=== PATIENT | female | born 1985 | race American Indian/Alaskan Native ===

== ENCOUNTER 2017-02-24 12:34 | Emergency (ER) | payer MEDICAID ==
--- NOTE | 2017-02-24 12:55 | Emergency Department Report ---
Chief Complaint: Abdominal Pain Stated Complaint: HERNIA FEMORAL/PAIN Time Seen by Provider: 02/24/17 12:47 - HPI History of Present Illness: PT c/o R sided groin pain, intermittently x 1 year. PT states 4 days ago, she was lifting a toilet and her pain increased. PT states she was seen by internal affairs commander and told she might have a cyst. No imaging done. PT states she was also seen in ED but no imaging done. PT states she was given RX for keflex and Tylenol # 3 without relief - ROS Review of Systems: + abd pain pain radiates down to R leg - missed menstrual cycle - Exam Vital Signs: Vital Signs 02/24/17 12:47 Temperature 98.5 F Pulse Rate 84 Respiratory 16 Rate Blood Pressure 120/74 O2 Sat by Pulse 100 Oximetry Physical Exam: thin female steady gait no acute distress MSE screening note: Focused history and physical exam performed. Due to findings the following was ordered: labs, us ED Disposition for MSE Condition: Stable Instructions: Abdominal Pain (ED)
[2017-02-24 13:12] LABS: Basophils % (Auto) 0.5 % (0.0-1.8); Hematocrit 40.4 % (30.3-42.9); Hemoglobin 13.9 gm/dl (10.1-14.3); Mean Corpuscular HGB Conc 35 % (30-34); Mean Corpuscular Hemoglobin 30 pg (28-32); Mean Corpuscular Volume 87 fl (79-97); Platelet Count 138 K/mm3 (140-440); Red Blood Count 4.64 M/mm3 (3.65-5.03); Red Cell Distribution Width 13.2 % (13.2-15.2); White Blood Count 5.6 K/mm3 (4.5-11.0)
[2017-02-24 13:33] LABS: Alanine Aminotransferase 9 units/L (7-56); Albumin 4.4 g/dL (3.9-5); Albumin/Globulin Ratio 1.4 %; Alkaline Phosphatase 41 units/L (35-129); Anion Gap 15 mmol/L; BUN/Creatinine Ratio 14.28; Blood Urea Nitrogen 10 mg/dL (7-17); Carbon Dioxide 26 mmol/L (22-30); Chloride 100.3 mmol/L (98-107); Glucose 93 mg/dL (65-100); Potassium 3.5 mmol/L (3.6-5.0); Sodium 138 mmol/L (137-145); Total Protein 7.6 g/dL (6.3-8.2)
[2017-02-24 14:54] LABS: Bilirubin,Urine NEG (Negative); Blood,Urine SM (Negative); Ketones,Urine NEG (Negative); Leukocyte Esterase,Urine NEG (Negative); Mucus,Urine FEW /HPF; Nitrite,Urine NEG (Negative); Protein,Urine <15 mg/dL mg/dL (Negative); Urobilinogen,Urine < 2.0 mg/dL (<2.0); WBC,Urine < 1.0 /HPF (0.0-6.0)
--- NOTE | 2017-02-24 15:25 | Ultrasound Report ---
Transabdominal and transvaginal pelvic ultrasound including Doppler interrogation. History: Pelvic pain. Findings: Uterus is normal in size and configuration measuring 9.3 x 4.2 x 5.9 cm. Endometrial thickness measures 9 mm. There no focal uterine abnormalities. The left ovary is normal. There is a 1.3 cm in diameter slightly hyperechoic region in the right ovary. Minimal free fluid is seen within the cul-de-sac. Doppler interrogation demonstrates normal flow to the ovaries. Impression: 1.3 cm solid lesion in the right ovary. Minimal free fluid is present within the cul-de-sac.
[2017-02-24] MEDS ORDERED: NACL 0.9% 1000 ML 1,000 ML IV ONE (15:36)
--- NOTE | 2017-02-24 15:38 | Emergency Department Report ---
<CRUZ RIOS - Last Filed: 02/24/17 20:33> ED Abdominal Pain HPI - General Chief Complaint: Abdominal Pain Stated Complaint: HERNIA FEMORAL/PAIN Time Seen by Provider: 02/24/17 12:47 Source: patient Mode of arrival: Ambulatory Limitations: No Limitations - History of Present Illness Initial Comments: 31-year-old female past medical history none presents with complaint of 4 days of right sided groin/inguinal pain. Patient states that she feels it outside of her genital region in perineal/right inguinal crease region. States it is an intermittent pressure and pain sensation. States that 4 days ago she lifted a heavy object when she was moving furniture around at home and subsequently he has experienced pain and soreness in her groin region. Patient denies any vaginal discharge denies any vaginal bleeding, states she does not think she is . States that approximately a year ago she had a similar episode after picking up something heavy. States she has been feeling somewhat nauseous. States she went to her [facility] who gave her prescription for Tylenol with codeine and Keflex and discharged her. Patient denies any overt vomiting, states she is still moving her bowels. Patient states she is still able to pass gas. MD Complaint: abdominal pain Onset/Timin -: days(s) Radiation: none Migration to: no migration Severity: moderate Severity scale (0 -10): 6 Consistency: intermittent Improves With: nothing Associated Symptoms: denies other symptoms - Related Data LMP Date: 02/18/17 Previous Rx's Medication Instructions Recorded Last Taken Type traMADol [Ultram] 50 mg PO Q6HR PRN #12 tablet 12/23/14 Unknown Rx Ibuprofen [Motrin] 600 mg PO Q8H PRN #30 tablet 02/24/17 Unknown Rx Allergies Allergy/AdvReac Type Severity Reaction Status Date / Time No Known Allergies Allergy Verified 12/23/14 08:51 ED Review of Systems ROS: Stated complaint: HERNIA FEMORAL/PAIN Other details as noted in HPI Constitutional: denies: chills, fever Eyes: denies: eye pain, eye discharge, vision change ENT: denies: ear pain, throat pain Respiratory: denies: cough, shortness of breath, wheezing Cardiovascular: denies: chest pain, palpitations Endocrine: no symptoms reported Gastrointestinal: denies: abdominal pain, nausea, diarrhea Genitourinary: denies: urgency, dysuria, discharge Musculoskeletal: denies: back pain, joint swelling, arthralgia Skin: denies: rash, lesions Neurological: denies: headache, weakness, paresthesias Psychiatric: denies: anxiety, depression Hematological/Lymphatic: denies: easy bleeding, easy bruising ED Past Medical Hx - Past Medical History Previous Medical History?: No - Surgical History Past Surgical History?: No - Social History Smoking Status: Never Smoker Substance Use Type: None - Medications Home Medications: Home Medications Medication Instructions Recorded Confirmed Last Taken Type traMADol [Ultram] 50 mg PO Q6HR PRN #12 tablet 12/23/14 Unknown Rx Ibuprofen [Motrin] 600 mg PO Q8H PRN #30 tablet 02/24/17 Unknown Rx ED Physical Exam - General Limitations: No Limitations General appearance: alert, in no apparent distress - Head Head exam: Present: atraumatic, normocephalic - Eye Eye exam: Present: normal appearance, PERRL, EOMI - ENT ENT exam: Present: mucous membranes moist - Neck Neck exam: Present: normal inspection, full ROM - Respiratory Respiratory exam: Present: normal lung sounds bilaterally. Absent: respiratory distress - Cardiovascular Cardiovascular Exam: Present: regular rate, normal rhythm. Absent: systolic murmur, diastolic murmur, rubs, gallop - GI/Abdominal GI/Abdominal exam: Present: soft, normal bowel sounds - Rectal Rectal exam: Present: normal inspection - External exam: Present: normal external exam Speculum exam: Present: normal speculum exam Bi-manual exam: Present: normal bi-manual exam - Extremities Exam Extremities exam: Present: normal inspection, full ROM - Back Exam Back exam: Present: normal inspection - Neurological Exam Neurological exam: Present: alert, oriented X3, CN II-XII intact, normal gait - Psychiatric Psychiatric exam: Present: normal affect, normal mood - Skin Skin exam: Present: warm, dry, intact, normal color. Absent: rash ED Course Vital Signs 02/24/17 02/24/17 12:47 18:55 Temperature 98.5 F Pulse Rate 84 71 Respiratory 16 18 Rate Blood Pressure 120/74 Blood Pressure 113/74 [Left] O2 Sat by Pulse 100 99 Oximetry ED Medical Decision Making - Lab Data Result diagrams: 02/24/17 12:58 02/24/17 12:58 - Medical Decision Making A/P: Groin pain, ovarian cysts, musculoskeletal. 1-CT scan shows ovarian cyst no other abnormalities no small bowel obstruction no incarcerated femoral hernia, pelvic ultrasound is consistent with finding of ovarian cyst 2-follow-up with [employer] [facility] and primary care 3-motrin return when necessary for discomfort 4-on clinical exam there is no evidence of an incarcerated for more inguinal hernia 5-wet prep sent, pending result Critical care attestation.: If time is entered above; I have spent that time in minutes in the direct care of this critically ill patient, excluding procedure time. ED Disposition Clinical Impression: Abdominal pain Qualifiers: Abdominal location: unspecified location Qualified Code(s): R10.9 - Unspecified abdominal pain Disposition: TO HOME OR SELFCARE Is pt being admited?: No Does the pt Need Aspirin: No Condition: Stable Instructions: Abdominal Pain (ED) Prescriptions: Ibuprofen [Motrin] 600 mg PO Q8H PRN #30 tablet PRN Reason: Pain Referrals: [facility] [Outside] - 3-5 Days BRIANNE AGUILAR MD [Referring] - 3-5 Days SHILO AGUILAR MD [Staff Physician] - 3-5 Days ARIAN AQUINO MD [Staff Physician] - 3-5 Days Forms: Work/School Release Form(ED) Time of Disposition: 20:32 <LESLEE GIRON - Last Filed: 02/24/17 20:54> ED Course - Reevaluation(s) Reevaluation #1: 02/24/17 20:52 PT aware of wet prep results. PT has no questions at this time. - Pulse Oximetry Interpretation Digit-Finger Initial Pulse Oximetry Readin Actions Taken: none ED Medical Decision Making - Lab Data Result diagrams: 02/24/17 12:58 02/24/17 12:58 Lab Results 02/24/17 02/24/17 02/24/17 Range/Units 12:58 12:58 12:58 WBC 5.6 (4.5-11.0) K/mm3 RBC 4.64 (3.65-5.03) M/mm3 Hgb 13.9 (10.1-14.3) gm/dl Hct 40.4 (30.3-42.9) % MCV 87 (79-97) fl MCH 30 (28-32) pg MCHC 35 H (30-34) % RDW 13.2 (13.2-15.2) % Plt Count 138 L (140-440) K/mm3 Lymph % (Auto) 22.2 (13.4-35.0) % [place] % (Auto) 7.8 H (0.0-7.3) % Eos % (Auto) 1.0 (0.0-4.3) % Baso % (Auto) 0.5 (0.0-1.8) % Lymph # 1.2 (1.2-5.4) K/mm3 [place] # 0.4 (0.0-0.8) K/mm3 Eos # 0.1 (0.0-0.4) K/mm3 Baso # 0.0 (0.0-0.1) K/mm3 Seg Neutrophils % 68.5 (40.0-70.0) % Seg Neutrophils # 3.8 (1.8-7.7) K/mm3 Sodium 138 (137-145) mmol/L Potassium 3.5 L (3.6-5.0) mmol/L Chloride 100.3 (98-107) mmol/L Carbon Dioxide 26 (22-30) mmol/L Anion Gap 15 mmol/L BUN 10 (7-17) mg/dL Creatinine 0.7 (0.7-1.2) mg/dL Estimated GFR > 60 ml/min BUN/Creatinine Ratio 14.28 % Glucose 93 (65-100) mg/dL Calcium 9.0 (8.4-10.2) mg/dL Total Bilirubin 1.10 (0.1-1.2) mg/dL AST 15 (5-40) units/L ALT 9 (7-56) units/L Alkaline Phosphatase 41 (35-129) units/L Total Protein 7.6 (6.3-8.2) g/dL Albumin 4.4 (3.9-5) g/dL Albumin/Globulin Ratio 1.4 % HCG, Qual Negative (Negative) Urine Color (Yellow) Urine Turbidity (Clear) Urine pH (5.0-7.0) Ur Specific [place] (1.003-1.030) Urine Protein (Negative) mg/dL Urine Glucose (UA) (Negative) mg/dL Urine Ketones (Negative) mg/dL Urine Blood (Negative) Urine Nitrite (Negative) Urine Bilirubin (Negative) Urine Urobilinogen (<2.0) mg/dL Ur Leukocyte Esterase (Negative) Urine WBC (Auto) (0.0-6.0) /HPF Urine RBC (Auto) (0.0-6.0) /HPF U Epithel Cells (Auto) (0-13.0) /HPF Urine Mucus /HPF 02/24/ Range/Units 13:14 WBC (4.5-11.0) K/mm3 RBC (3.65-5.03) M/mm3 Hgb (10.1-14.3) gm/dl Hct (30.3-42.9) % MCV (79-97) fl MCH (28-32) pg MCHC (30-34) % RDW (13.2-15.2) % Plt Count (140-440) K/mm3 Lymph % (Auto) (13.4-35.0) % [place] % (Auto) (0.0-7.3) % Eos % (Auto) (0.0-4.3) % Baso % (Auto) (0.0-1.8) % Lymph # (1.2-5.4) K/mm3 [place] # (0.0-0.8) K/mm3 Eos # (0.0-0.4) K/mm3 Baso # (0.0-0.1) K/mm3 Seg Neutrophils % (40.0-70.0) % Seg Neutrophils # (1.8-7.7) K/mm3 Sodium (137-145) mmol/L Potassium (3.6-5.0) mmol/L Chloride (98-107) mmol/L Carbon Dioxide (22-30) mmol/L Anion Gap mmol/L BUN (7-17) mg/dL Creatinine (0.7-1.2) mg/dL Estimated GFR ml/min BUN/Creatinine Ratio % Glucose (65-100) mg/dL Calcium (8.4-10.2) mg/dL Total Bilirubin (0.1-1.2) mg/dL AST (5-40) units/L ALT (7-56) units/L Alkaline Phosphatase (35-129) units/L Total Protein (6.3-8.2) g/dL Albumin (3.9-5) g/dL Albumin/Globulin Ratio % HCG, Qual (Negative) Urine Color Yellow (Yellow) Urine Turbidity Clear (Clear) Urine pH 6.0 (5.0-7.0) Ur Specific [place] 1.018 (1.003-1.030) Urine Protein <15 mg/dl (Negative) mg/dL Urine Glucose (UA) Neg (Negative) mg/dL Urine Ketones Neg (Negative) mg/dL Urine Blood Sm (Negative) Urine Nitrite Neg (Negative) Urine Bilirubin Neg (Negative) Urine Urobilinogen < 2.0 (<2.0) mg/dL Ur Leukocyte Esterase Neg (Negative) Urine WBC (Auto) < 1.0 (0.0-6.0) /HPF Urine RBC (Auto) 1.0 (0.0-6.0) /HPF U Epithel Cells (Auto) 6.0 (0-13.0) /HPF Urine Mucus Few /HPF - Radiology Data Radiology results: report reviewed Critical Care Time: No
[2017-02-24] MEDS ORDERED: NACL ONE ×2 (15:59→18:59)
[2017-02-24] MEDS ORDERED: MORPHINE IV ONE (17:47)
[2017-02-24] MEDS ORDERED: ZOFRAN IV ONE (18:02)
[2017-02-24] MEDS ORDERED: ZOFRAN ONE (18:02)
--- NOTE | 2017-02-24 20:08 | Cat Scan Report ---
FINAL REPORT EXAM: CT ABDOMEN PELVIS W CON HISTORY: abdominal pain ? rigth sided femoral hernia TECHNIQUE: CT abdomen and pelvis with oral and intravenous contrast PRIORS: None. FINDINGS: No acute abnormality identified in the lung bases. No focal abnormality identified within the liver parenchyma. The spleen demonstrates normal size and attenuation. No pancreatic abnormalities seen. The kidneys demonstrate symmetric contrast enhancement. Adrenal glands are unremarkable. No evidence of hydronephrosis. Abdominal aorta is normal in caliber. No pathologically enlarged lymph nodes are identified. No signs of free fluid or free air No evidence of small bowel dilatation. The appendix is identified and is normal in size no adjacent inflammatory change seen. Urinary bladder is unremarkable. There is involuting right ovarian cyst 1.7 centimeters IMPRESSION: 1.7 centimeter involuting right ovarian cyst Otherwise negative study
[2017-02-24 21:01] VITALS: BP 104/69
== END 2017-02-24 21:01 | disposition home or self-care (01) ==
LOC: ED 12:34
DX: R10.9 Unspecified abdominal pain (principal)
CPT/HCPCS: 36415; 74177; 76830; 80053; 81001; 84703; 85025; 87210; 87591; 93975; 96361; 96374; 96375; 99285; J2270; J2405; J7030; Q9967

== ENCOUNTER 2019-05-11 07:54 | Emergency (ER) | payer MEDICAID ==
[2019-05-11 08:03] VITALS: BP 106/71
--- NOTE | 2019-05-11 08:25 | Emergency Department Report ---
ED Abdominal Pain HPI - General Chief Complaint: Abdominal Pain Stated Complaint: VOMITING/LT LOWER ABD PAIN Time Seen by Provider: 05/11/19 08:25 Source: patient Mode of arrival: Ambulatory Limitations: No Limitations - History of Present Illness Initial Comments: 33 yo comes to er with LLQ pain and nausea. LMP 2 w ago. No vag bleed or dc. Not concerned for STI. Pain sharp and comes and goes MD Complaint: abdominal pain -: Gradual, days(s) Location: LLQ Radiation: none Migration to: no migration Severity: mild Quality: stabbing Consistency: intermittent Improves With: nothing Worsens With: nothing Associated Symptoms: denies other symptoms - Related Data Previous Rx's Medication Instructions Recorded Last Taken Type Ibuprofen [Motrin] 800 mg PO Q8HR PRN #30 tablet 05/11/19 Unknown Rx Ondansetron [Zofran Odt] 4 mg PO Q8HR PRN #10 tab.rapdis 05/11/19 Unknown Rx Allergies Allergy/AdvReac Type Severity Reaction Status Date / Time No Known Allergies Allergy Verified 05/11/19 07:58 ED Review of Systems ROS: Stated complaint: VOMITING/LT LOWER ABD PAIN Other details as noted in HPI Comment: All other systems reviewed and negative ED Past Medical Hx - Past Medical History Previous Medical History?: No - Surgical History Past Surgical History?: Yes Additional Surgical History: OVARIAN CYST - Family History Family history: no significant - Social History Smoking Status: Never Smoker Substance Use Type: None - Medications Home Medications: Home Medications Medication Instructions Recorded Confirmed Last Taken Type Ibuprofen [Motrin] 800 mg PO Q8HR PRN #30 tablet 05/11/19 Unknown Rx Ondansetron [Zofran Odt] 4 mg PO Q8HR PRN #10 tab.rapdis 05/11/19 Unknown Rx ED Physical Exam - General Limitations: No Limitations General appearance: alert - Head Head exam: Present: normocephalic - Eye Eye exam: Present: normal appearance, PERRL - ENT ENT exam: Present: mucous membranes moist - Neck Neck exam: Present: normal inspection - Respiratory Respiratory exam: Present: normal lung sounds bilaterally - Cardiovascular Cardiovascular Exam: Present: regular rate - GI/Abdominal GI/Abdominal exam: Present: soft, normal bowel sounds - Rectal Rectal exam: Present: deferred - Extremities Exam Extremities exam: Present: normal inspection - Back Exam Back exam: Present: normal inspection - Neurological Exam Neurological exam: Present: alert, oriented X3, CN II-XII intact - Psychiatric Psychiatric exam: Present: normal affect, normal mood - Skin Skin exam: Present: warm, dry, intact ED Course Vital Signs 05/11/19 05/11/19 08:02 09:03 Temperature 98.2 F Pulse Rate 95 H Respiratory 16 16 Rate Blood Pressure 106/71 O2 Sat by Pulse 99 Oximetry ED Medical Decision Making - Lab Data Result diagrams: 05/11/19 09:15 05/11/19 09:15 - Radiology Data Radiology results: report reviewed, image reviewed - Medical Decision Making Labs 05/11/19 05/11/19 05/11/19 08:36 09:15 09:15 WBC 6.7 RBC 4.87 Hgb 14.9 H Hct 43.6 H MCV 89 MCH 31 MCHC 34 RDW 12.7 L Plt Count 134 L Sodium 139 Potassium 4.5 Chloride 103.2 Carbon Dioxide 23 Anion Gap 17 BUN 13 Creatinine 0.7 Estimated GFR > 60 BUN/Creatinine Ratio 19 Glucose 83 Calcium 9.2 Urine Color Yellow Urine Turbidity Slightly-cloudy Urine pH 5.0 Ur Specific [place] 1.024 Urine Protein <15 mg/dl Urine Glucose (UA) Neg Urine Ketones Neg Urine Blood Sm Urine Nitrite Neg Urine Bilirubin Neg Urine Urobilinogen < 2.0 Ur Leukocyte Esterase Neg Urine WBC (Auto) 1.0 Urine RBC (Auto) 1.0 U Epithel Cells (Auto) 6.0 Urine Bacteria (Auto) 1+ Urine Mucus 1+ Urine HCG, Qual Negative Vital Signs 05/11/19 05/11/19 08:02 09:03 Temperature 98.2 F Pulse Rate 95 H Respiratory 16 16 Rate Blood Pressure 106/71 O2 Sat by Pulse 99 Oximetry on follow up with pt she is concerned preg or that she has ovarian cyst pt updated on test findings. When told not she was feeling better. Dc home with obgyn follow up vss no fever taking po ambulatory and non toxic - Differential Diagnosis ro preg/ uti Critical care attestation.: If time is entered above; I have spent that time in minutes in the direct care of this critically ill patient, excluding procedure time. ED Disposition Clinical Impression: Nausea, Abdominal pain Disposition: DC-01 TO HOME OR SELFCARE Is pt being admited?: No Does the pt Need Aspirin: No Condition: Stable Instructions: Acute Nausea and Vomiting (ED) Additional Instructions: FOLLOW UP WITH OBGYN SAFE SEX MEDS ORDERED TODAY DIET AND ACTIVITY TOLERATED ALL LABS NORMAL NEG. ULTRASOUND NORMAL; NO CYST Prescriptions: Ibuprofen [Motrin] 800 mg PO Q8HR PRN #30 tablet PRN Reason: Pain, Moderate (4-6) Ondansetron [Zofran Odt] 4 mg PO Q8HR PRN #10 tab.rapdis PRN Reason: Vomiting Referrals: PRIMARY CARE, [Primary Care Provider] - 3-5 Days YURI AGUILAR MD [Staff Physician] - 3-5 Days Time of Disposition: 10:56
[2019-05-11 09:05] LABS: Bacteria,Urine 1+ /HPF (Negative); Bilirubin,Urine NEG (Negative); Blood,Urine SM (Negative); Color,Urine Yellow (Yellow); Mucus,Urine 1+ /HPF; Protein,Urine <15 mg/dL mg/dL (Negative); Urobilinogen,Urine < 2.0 mg/dL (<2.0)
[2019-05-11 09:06] LABS: HCG Qualitative,Urine Negative (Negative)
[2019-05-11] MEDS ORDERED: IBUPROFEN 800 MG TAB PO ONE (09:09)
[2019-05-11 09:26] LABS: Hematocrit 43.6 % (30.3-42.9); Hemoglobin 14.9 gm/dl (10.1-14.3); Mean Corpuscular HGB Conc 34 % (30-34); Mean Corpuscular Volume 89 fl (79-97); Platelet Count 134 K/mm3 (140-440); Red Blood Count 4.87 M/mm3 (3.65-5.03); Red Cell Distribution Width 12.7 % (13.2-15.2)
[2019-05-11 09:35] LABS: BUN/Creatinine Ratio 19; Blood Urea Nitrogen 13 mg/dL (7-17); Calcium 9.2 mg/dL (8.4-10.2); Hemolysis Index 26
--- NOTE | 2019-05-11 10:52 | Ultrasound Report ---
ULTRASOUND PELVIC COMPLETE HISTORY: Left lower quadrant abdominal pain, pelvic pain TECHNIQUE: Transabdominal ultrasound with color Doppler imaging. COMPARISON: 02/24/2017. FINDINGS: The uterus is anteverted. The uterus measures 9.5 x 3.8 x 5.5 cm. No uterine fibroid disease is ident ified. The cervix is grossly normal. The endometrial stripe is homogeneous and measures 9 mm in thickness. The right ovary measures 3.5 x 1.7 x 2.7 cm. The left ovary measures 3.1 x 1.9 x 3.2 cm. No ovarian c yst or mass. No pelvic fluid collection. IMPRESSION: Unremarkable transabdominal pelvic ultrasound. Signer Name: Eliseo Alex Jr, MD Signed: 05/11/2019 10:48 AM Workstation Name: [id number]
== END 2019-05-11 11:21 | disposition home or self-care (01) ==
LOC: ED 07:54
DX: R10.30 Lower abdominal pain, unspecified (principal); R11.2 Nausea with vomiting, unspecified
CPT/HCPCS: 36415; 76856; 80048; 81001; 81025; 85027

== ENCOUNTER 2020-04-15 11:40 | Emergency (ER) | payer MEDICAID ==
[2020-04-15 12:02] VITALS: BP 105/64
[2020-04-15] MEDS ORDERED: HYDROcodone/ACETAMINOPHEN 10-325MG TAB PO ONE (12:47)
--- NOTE | 2020-04-15 13:21 | XRay Report ---
RIGHT KNEE 3 VIEW(S) INDICATION / CLINICAL INFORMATION: right knee pain s/p fall COMPARISON: None available. FINDINGS: BONES / JOINT(S): No acute fracture or subluxation. Mild effusion. No significant arthritis. SOFT TISSUES: Mild edema. ADDITIONAL FINDINGS: None. Signer Name: Mina Whitley MD Signed: 04/15/2020 1:16 PM Workstation Name: [id number]
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
== END 2020-04-15 14:02 | disposition home or self-care (01) ==
LOC: ED 11:40
DX: S86.911A Strain of unspecified muscle(s) and tendon(s) at lower leg level, right leg, initial encounter (principal); F17.200 Nicotine dependence, unspecified, uncomplicated; Z79.899 Other long term (current) drug therapy; Z98.890 Other specified postprocedural states; W05.1XXA Fall from non-moving nonmotorized scooter, initial encounter; Y93.89 Activity, other specified; Y92.410 Unspecified street and highway as the place of occurrence of the external cause; Y99.8 Other external cause status

== ENCOUNTER 2021-03-08 18:18 | Emergency (ER) | payer MEDICAID ==
[2021-03-08 20:47] VITALS: BP 108/82
== END 2021-03-09 02:12 | disposition left against medical advice (07) ==
LOC: ED 18:18
DX: R42 Dizziness and giddiness (principal); Z53.21 Procedure and treatment not carried out due to patient leaving prior to being seen by health care provider

== ENCOUNTER 2021-05-25 14:35 | Emergency (ER) | payer MEDICAID ==
[2021-05-25 15:07] VITALS: BP 108/75
== END 2021-05-25 15:00 | disposition left against medical advice (07) ==
LOC: ED 14:35
DX: R07.9 Chest pain, unspecified (principal); Z53.21 Procedure and treatment not carried out due to patient leaving prior to being seen by health care provider